=== PATIENT | female | born 1970 | race Two or more races ===

== ENCOUNTER 2017-09-10 12:32 | Emergency (ER) | payer OTHER ==
[~2017-09-10] VITALS: Ht 157.5 cm; Wt 54.4 kg
[~2017-09-10 12:32] MED LIST: CIPRO500 MG PO; CORTISPORIN EAR10 ML OT
== END 2017-09-10 16:18 | disposition home or self-care (01) ==
LOC: ER 12:32
DX: R20.0 Anesthesia of skin (principal)

== ENCOUNTER 2024-08-03 10:22 | Emergency (ER) | payer OTHER ==
[~2024-08-03] VITALS: Ht 157.5 cm; Wt 54.4 kg
[2024-08-03] MEDS ORDERED: COZAAR50 MG (10:54)
[2024-08-03] MEDS ORDERED: LEVALBUTEROL HCL 1.25 MG/3 ML SOLUTION IH STA (13:21)
[2024-08-03] MEDS ORDERED: IPRATROPIUM BROMIDE 0.5 MG/2.5 ML AMPUL.NEB IH STA (13:21)
[2024-08-03] MEDS ORDERED: BUDESONIDE 0.5 MG/2 ML AMPUL.NEB IH STA (13:22)
[2024-08-03] MEDS ORDERED: METHYLPREDNISOLONE SOD SUCC 125 MG VIAL IV STA (13:23)
[2024-08-03] MEDS ORDERED: METHYLPREDNISOLONE SOD SUCC 125 MG VIAL ONE (14:07)
[2024-08-03] MEDS ORDERED: IPRATROPIUM BROMIDE 0.5 MG/2.5 ML AMPUL.NEB IH ONE (14:28)
[2024-08-03] MEDS ORDERED: LEVALBUTEROL HCL 0.63 MG/3 ML SOLUTION IH ONE (14:28)
[2024-08-03] MEDS ORDERED: BUDESONIDE 0.5 MG/2 ML AMPUL.NEB IH ONE (14:28)
[2024-08-03 14:56] LABS: HEMATOCRIT 39.9 % (36.0-45.00); HEMOGLOBIN 13.4 g/dL (12.0-15.00); MEAN CELL VOLUME 90.8 fL (80.00-100.00); MEAN CORPUSCULAR HEMOGLOBIN 30.4 pg (27.00-32.0); MEAN CORPUSCULAR HGB CONC 33.5 g/dl (32.0-36.0); PLATELET COUNT 283 K/uL (150-450); RED CELL DISTRIBUTION WIDTH 14.4 % (11.5-14.5)
[2024-08-03 15:17] LABS: CALCIUM 9.2 mg/dL (8.5-10.1); CREATININE SERUM 0.75 mg/dL (0.55-1.02); GFR 81.47; POTASSIUM 3.39 mEq/L (3.5-5.1)
== END 2024-08-03 16:24 | disposition home or self-care (01) ==
LOC: ER 10:24
PROVIDERS: General Practice
DX: R05.9 Cough, unspecified (principal); I10 Essential (primary) hypertension